=== PATIENT | male | born 1970 | race Caucasian/White ===

== ENCOUNTER → 2017-06-22 09:15 | Emergency (ER) | payer SELFPAY ==
[~2017-06-22 09:15] MED LIST: Iohexol 300* (CONTRAST) 10 ML SDV IV ONE; Ondansetron INJ* 2 MG/ML VIAL IV ONE
[2017-06-22 10:43] LABS: Hematocrit 46 % (42-52); Hemoglobin 16.1 g/dl (14.0-18.0); Mean Corpuscular HGB Conc 35 g/dl (31-36); Mean Corpuscular Hemoglobin 31 pg (27-31); Mean Corpuscular Volume 90 fL (80-94); Mean Platelet Volume 8 um3 (7.4-10.4); Red Blood Count 5.15 10^6/ul (4.0-5.4); Red Cell Distribution Width 14 % (10.5-15); White Blood Count 8.6 10^3/ul (3.5-10.8)
[2017-06-22 11:01] LABS: Albumin 4.1 g/dL (3.2-5.2); BUN/Creatinine Ratio 12.8 (8-20); C Reactive Protein 2.98 mg/L (< 5.00); Calcium 9.2 mg/dL (8.6-10.3); EGFR African American 136.6 (>60); EGFR Non-African American 106.2 (>60); Globulin 2.4 g/dL (2-4); Potassium 4.3 mmol/L (3.5-5.0); Total Bilirubin 0.5 mg/dL (0.2-1.0); Total Protein 6.5 g/dL (6.4-8.9)
[2017-06-22 12:24] LABS: Urine Bilirubin Negative (Negative); Urine Glucose Negative (Negative); Urine Nitrite Negative (Negative)
--- NOTE | 2017-06-22 13:06 | RAD ---
Indication: Lower abdominal pain, umbilical hernia. Contrast: Administered 120.7 ml of OMNIPAQUE 300 mgi/ml CT of the abdomen and pelvis was performed after oral and IV contrast administration. Coronal and sagittal reconstructed images were obtained. Comparison is made with previous exam dated November 06, 2016. The lung bases demonstrate no pleural fluid, nodules or masses. Heart is of normal size without evidence of pericardial effusion. Liver is normal in size. No focal lesions or intrahepatic ductal dilatation is noted. Common duct is not dilated. The gallbladder demonstrates no calcified gallstones, pericholecystic fluid or wall thickening. The spleen is normal in size. The pancreas demonstrates no mass or pancreatic duct dilatation. No adrenal lesions are noted. The kidneys demonstrate symmetric nephrograms without focal lesions. Mildly atherosclerotic aorta is noted without evidence of aneurysmal dilatation. CT of the pelvis demonstrates previously identified umbilical hernia is no longer present. No retroperitoneal or pelvic lymphadenopathy is noted. There is no evidence of bowel obstruction. No pelvic adenopathy is noted. There is asymmetric wall thickening of the urinary bladder anteriorly and to the left. This may represent infection although underlying mass is not excluded. No inguinal hernias are noted. No free fluid is noted. IMPRESSION: There is focal wall thickening of the urinary bladder in the left anterior dome of the urinary bladder. This may represent underlying infection although neoplastic process is not excluded. No other masses or fluid collections are identified. Previous identified periumbilical hernia is no longer present.
[2017-06-22 13:45] VITALS: BP 128/81
--- NOTE | 2017-06-23 10:25 | ED ---
Porter Powell Auryana, scribed for Pawan Pires MD on 06/22/17 at 1111 . Abdominal Pain/Male - HPI Summary HPI Summary: 47 year old male presents with abdominal pain starting 4 days ago. Patient reports that the pain has not improved over the last few days. The pain is located in the central abdomen and is rated 10/10. He is unable to describe the pain. He also c/o diarrhea. He denies any chills, vomiting, blood in stool, pain with BMs, or testicular pain. Patient is concerned about issues with his umbilical hernia repair. PMHx is significant for umbilical herniorrhaphy ( October 2016). SHx is significant for alcohol use. - History of Current Complaint Chief Complaint: EDAbdPain Stated Complaint: ABD PAIN Time Seen by Provider: 06/22/17 09:37 Hx Obtained From: Patient Onset/Duration: Gradual Onset, Lasting Days - 4, Still Present Timing: Constant Severity Initially: Mild Severity Currently: Moderate Pain Intensity: 6 - rates 10/10 on physician visit Pain Scale Used: 0-10 Numeric Location: Other - central ABD Character: Other: - unable to describe Alleviating Factor(s): Nothing Associated Signs And Symptoms: Positive: Diarrhea, Other - no testicular pain. Negative: Blood in Stool, Vomiting - Allergies/Home Medications Allergies/Adverse Reactions: Allergies Allergy/AdvReac Type Severity Reaction Status Date / Time ?IMMUNIZATION AT -NAME Allergy Rash Uncoded 11/18/16 11:00 UNKNOWN PMH/Surg Hx/FS Hx/Imm Hx Endocrine/Hematology History: Denies: Hx Diabetes Cardiovascular History: Denies: Hx Hypertension GI History: Denies: Other GI Disorders History: Denies: Hx Renal Disease Sensory History: Reports: Hx Contacts or Glasses - READING GLASSES Denies: Hx Hearing Aid Opthamlomology History: Reports: Hx Contacts or Glasses - READING GLASSES Infectious Disease History: Denies: Traveled Outside the [place] in Last 30 Days - Family History Known Family History: Positive: Cardiac Disease - Social History Occupation: Employed Full-time - other Lives: Alone Alcohol Use: Weekly Alcohol Amount: 6-12 PACK A COUPLE OF TIMES PER WEEK Substance Use Type: Reports: Marijuana Substance Use Comment - Amount & Last Used: MARIJUANA- LAST USED 11/12/16 Smoking Status (MU): Heavy Every Day Tobacco Smoker Amount Used/How Often: 1 PPD X 30 YEARS Review of Systems Constitutional: Negative Negative: Fever, Chills Eyes: Negative Negative: Erythema ENT: Negative Negative: Sore Throat Cardiovascular: Negative Negative: Chest Pain Respiratory: Negative Negative: Shortness Of Breath, Cough Positive: Abdominal Pain, Diarrhea, Other - no pain with BM, no blood in stool. Negative: Vomiting, Nausea Genitourinary: Negative Negative: dysuria, hematuria, pain - no testicular pain Musculoskeletal: Negative Negative: Myalgia, Edema Skin: Negative Negative: Rash Neurological: Negative, Other - no dizziness Psychological: Normal All Other Systems Reviewed And Are Negative: Yes Physical Exam - Summary Physical Exam Summary: Constitutional: Well-developed, Well-nourished, Alert. (-) Distressed Skin: Warm, Dry HENT: Normocephalic; Atraumatic Eyes: Conjunctiva normal Neck: Musculoskeletal ROM normal neck. (-) JVD, (-) Stridor, (-) Tracheal deviation Cardio: Rhythm regular, rate normal, Heart sounds normal; Intact distal pulses; The pedal pulses are 2+ and symmetric. Radial pulses are 2+ and symmetric. (-) Murmur Pulmonary/Chest wall: Effort normal. (-) Respiratory distress, (-) Wheezes, (-) Rales Abd: Soft, mid lower abdominal tenderness, (-) Distension, (-) Guarding, (-) Rebound. Palpable scar tissue in the umbilicus. Hernia s/p repair. Musculoskeletal: (-) Edema Lymph: (-) Cervical adenopathy Neuro: Alert, Oriented x3 Psych: Mood and affect Normal Triage Information Reviewed: Yes Vital Signs On Initial Exam: Initial Vitals Temp Pulse Resp BP Pulse Ox 98.8 F 66 20 158/100 97 06/22/17 09:16 06/22/17 09:16 06/22/17 09:16 06/22/17 09:16 06/22/17 09:16 Vital Signs Reviewed: Yes Diagnostics - Vital Signs Vital Signs Temp Pulse Resp BP Pulse Ox 06/22/17 09:56 63 11 96 06/22/17 09:16 98.8 F 66 20 158/100 97 - Laboratory Result Diagrams: 06/22/17 10:20 06/22/17 10:20 Lab Statement: Any lab studies that have been ordered have been reviewed, and results considered in the medical decision making process. - CT ABD/PEL CT Interpretation: Positive (See Comments) - IMPRESSION: There is focal wall thickening of the urinary bladder in the left anterior dome of the urinary bladder. This may represent underlying infection although neoplastic process is not excluded. CT Interpretation Completed By: Radiologist Re-Evaluation - Re-Evaluation First Eval Re-Evaluation Time: 13:42 - pain has improved, patient agrees with D/C Change: Improved Abdominal Pain Fem Course/Dx - Course Assessment/Plan: 47 year old male presents with abdominal pain starting 4 days ago. Patient reports that the pain has not improved over the last few days. The pain is located in the central abdomen and is rated 10/10. He is unable to describe the pain. He also c/o diarrhea. He denies any chills, vomiting, blood in stool, pain with BMs, or testicular pain. Patient is concerned about issues with his umbilical hernia repair. PMHx is significant for umbilical herniorrhaphy (October 2016). SHx is significant for alcohol use. Test results show glucose of 107, lactic 0.9, CRP 2.98, and lipase of 18. LFTs are WNL. Negative C. Diff. UA is negative for U.T.I. CT ABD/PEL- IMPRESSION: There is focal wall thickening of the urinary bladder in the left anterior. dome of the urinary bladder. This may represent underlying infection although neoplastic. process is not excluded. Patient will be discharged home with follow up with Urology and PCP. Recommended to use OTC pain medications for pain management. Patient is agreeable with plan. DDx: gastroenteritis, colitis , diverticulitis, umbilical hernia - recurrent. Dx: bladder mass, diarrhea. - Diagnoses Differential Diagnosis/HQI/PQRI: Diverticulitis, Other - gastroenteritis, colitis, umbilical hernia - recurrent. Provider Diagnoses: Bladder mass, Diarrhea Discharge - Discharge Plan Condition: Stable Disposition: HOME Patient Education Materials: Acute Diarrhea (ED) Forms: *Work Release Referrals: [facility] [place] [facility] [Outside] - 2 Days Rakan Johnston MD [Medical Doctor] - 3 Days (PLEASE FOLLOW UP IN 3-5 DAYS) Additional Instructions: OVER THE COUNTER PAIN MEDICATIONS MAY BE USED TO CONTROL PAIN. RETURN TO THE EMERGENCY DEPARTMENT FOR CHANGING OR WORSENING SYMPTOMS The documentation as recorded by the Porter shaffer Auryana accurately reflects the service I personally performed and the decisions made by , Pawan Pires MD.
== END | disposition home or self-care (01) ==
LOC: ED 09:15
DX: N32.9 Bladder disorder, unspecified (principal); R19.7 Diarrhea, unspecified; F10.99 Alcohol use, unspecified with unspecified alcohol-induced disorder; F17.210 Nicotine dependence, cigarettes, uncomplicated
CPT/HCPCS: 36415; 74177; 80053; 81003; 83605; 83690; 85025; 86140; 87045; 87046; 87077; 87493; 87899; 96374; 99282; J2405; Q9967

== ENCOUNTER 2017-07-14 08:55 | Emergency (ER) | payer SELFPAY ==
--- NOTE | 2017-07-14 09:43 | RAD ---
HISTORY: Fall, right ring finger pain and swelling COMPARISONS: None VIEWS: 4, Frontal, lateral, and oblique views of the right hand FINDINGS: BONE DENSITY: Normal. BONES: There is no displaced fracture. 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 SOFT TISSUES: There is soft tissue swelling centered at the fourth PIP joint OTHER FINDINGS: None. IMPRESSION: SOFT TISSUE SWELLING CENTERED AT THE FOURTH PIP JOINT. NO ACUTE OSSEOUS INJURY. IF SYMPTOMS PERSIST, RECOMMEND REPEAT IMAGING.
[2017-07-14 10:22] VITALS: BP 140/90
--- NOTE | 2017-07-14 11:32 | UC ---
Hand/Wrist HPI - HPI Summary HPI Summary: SLIPPED AND FELL ON STEPS YESTERDAY, INJURY TO RIGHT 4TH FINGER. AFTER INJURY PATIHEATHER BELIEVED FINGER WAS DISLOCATED, HE 'PUT IT BACK INTO PLACE' . TODAY FINGER IS MORE SWOLLEN AND PAINFUL. NO HISTORY OF PREVIOUS FINGER DISLOCATION. - History Of Current Complaint Chief Complaint: UCUpperExtremity Stated Complaint: FINGER INJURY Time Seen by Provider: 07/14/17 10:22 Hx Obtained From: Patient Onset/Duration: Sudden Onset, Lasting Days, Resolved, Worse Since - TODAY Severity Initially: Severe Severity Currently: Moderate Pain Intensity: 0 Pain Scale Used: 0-10 Numeric Character Of Pain: Dull, Aching Aggravating Factor(s): Flexion, Extension Alleviating: Nothing Associated Signs And Symptoms: Positive: Negative Related History: Dominant Hand Left - Allergies/Home Medications Allergies/Adverse Reactions: Allergies Allergy/AdvReac Type Severity Reaction Status Date / Time ?IMMUNIZATION AT -NAME Allergy Rash Uncoded 07/14/17 09:17 UNKNOWN Home Medications: Home Medications NK [No Home Medications Reported] 07/14/17 [History Confirmed 07/14/17] PMH/Surg Hx/FS Hx/Imm Hx Previously Healthy: Yes - Surgical History Surgical History: Yes Surgery Procedure, Year, and Place: hernia-2016 - Family History Known Family History: Positive: Cardiac Disease - Social History Occupation: Employed Full-time Lives: With Family Alcohol Use: Occasionally Alcohol Amount: 6-12 PACK A COUPLE OF TIMES PER WEEK Substance Use Type: None Substance Use Comment - Amount & Last Used: MARIJUANA- LAST USED 11/12/16 Smoking Status (MU): Heavy Every Day Tobacco Smoker Amount Used/How Often: 1 PPD X 30 YEARS Review of Systems Constitutional: Negative Skin: Negative Eyes: Negative ENT: Negative Respiratory: Negative Cardiovascular: Negative Gastrointestinal: Negative Genitourinary: Negative Motor: Negative Neurovascular: Negative Musculoskeletal: Arthralgia, Edema - RIGHT 4TH FINGER, Myalgia Neurological: Negative Psychological: Negative All Other Systems Reviewed And Are Negative: Yes Physical Exam Triage Information Reviewed: Yes Appearance: Well-Appearing, No Pain Distress, Well-Nourished Vital Signs: Initial Vital Signs Temp 98.4 F 07/14/17 09:17 Pulse 71 07/14/17 09:17 Resp 18 07/14/17 09:17 BP 142/109 07/14/17 09:17 Pulse Ox 99 07/14/17 09:17 Vital Signs Reviewed: Yes Eye Exam: Normal ENT Exam: Normal ENT: Positive: Normal ENT inspection, Hearing grossly normal, Pharynx normal, TMs normal Dental Exam: Normal Neck exam: Normal Neck: Positive: Supple, Nontender, No Lymphadenopathy Respiratory Exam: Normal Respiratory: Positive: Chest non-tender, Lungs clear, Normal breath sounds, No respiratory distress Cardiovascular Exam: Normal Cardiovascular: Positive: RRR, No Murmur, Pulses Normal Abdominal Exam: Normal Musculoskeletal: Positive: Strength Limited @ - RIGHT 4TH FINGER, ROM Limited @ - RIGHT 4TH FINGER, Edema @ Neurological Exam: Normal Psychological Exam: Normal Skin Exam: Normal Hand/Wrist Course/Dx - Differential Dx/Diagnosis Differential Diagnosis/HQI/PQRI: Dislocation, Sprain, Strain Provider Diagnoses: RIGHT FOURTH FINGR SPRAIN Discharge - Discharge Plan Condition: Stable Disposition: HOME Patient Education Materials: Finger Dislocation (ED), Finger Sprain (ED) Referrals: [facility] [Outside] Brant Olsen MD [Primary Care Provider] - Doug Escobar MD [Medical Doctor] - Additional Instructions: ELEVATED BLOOD PRESSURE: TODAY DURING CLINICAL EVALUATION YOUR BLOOD PRESSURE WAS NOTED TO BE ELEVATED. TODAY IT WAS __142___/___109___; NORMAL BLOOD PRESSURE IS 120/80. PLEASE SET AN APPOINTMENT WITHIN THE NEXT WEEK WITH YOUR PRIMARY CARE PROVIDER (OR PROMPTLY ESTABLISH PRIMARY CARE) REGARDING PROMPT RE- EVALUATION OF THIS CONCERN. HIGH BLOOD PRESSURE IS THE MOST COMMON AND HIGHLY IMPORTANT RISK FACTOR FOR THE FOLLOWING: HEART FAILURE, HEART ATTACK ( MYOCARDIAL INFARCTION), INTRACEREBRAL HEMORRHAGE, ISCHEMIC & NONISCHEMIC STROKES , WELL CHRONIC KIDNEY DISEASE AND END STAGE RENAL DISEASE. PLEASE CONSULT AND DISCUSS MANAGEMENT OF THIS FINDING WITH YOUR PRIMARY CARE PHYSICIAN.
== END 2017-07-14 10:45 | disposition home or self-care (01) ==
LOC: UCEAST 08:55
DX: S63.634A Sprain of interphalangeal joint of right ring finger, initial encounter (principal); W10.9XXA Fall (on) (from) unspecified stairs and steps, initial encounter; Y92.9 Unspecified place or not applicable; Z88.7 Allergy status to serum and vaccine; F17.210 Nicotine dependence, cigarettes, uncomplicated
CPT/HCPCS: 99212; G0463